=== PATIENT | female | born 1950 | race African-American/Black ===

== ENCOUNTER 2024-06-11 11:04 | Outpatient (CLI) | payer MEDICARE | END 2024-06-11 11:05 | disposition home or self-care (01) | LOC: CSHULT 11:04 | PROVIDERS: ATTEND Internal Medicine | DX: R22.2 Localized swelling, mass and lump, trunk (principal); C34.91 Malignant neoplasm of unspecified part of right bronchus or lung; R97.8 Other abnormal tumor markers | CPT/HCPCS: 76999 ==

== ENCOUNTER 2024-07-15 09:54 | Outpatient (CLI) | payer MEDICARE | END 2024-07-15 09:55 | disposition home or self-care (01) | LOC: CSHCT 09:54 | PROVIDERS: ATTEND Internal Medicine | DX: C34.91 Malignant neoplasm of unspecified part of right bronchus or lung (principal); R97.8 Other abnormal tumor markers; C79.51 Secondary malignant neoplasm of bone; E27.8 Other specified disorders of adrenal gland; R91.8 Other nonspecific abnormal finding of lung field | CPT/HCPCS: 71260; 74177; 82565 ==

== ENCOUNTER 2025-03-03 14:10 | Outpatient (CLI) | payer OTHER | END 2025-03-03 14:11 | disposition home or self-care (01) | LOC: CSHULT 14:10 | PROVIDERS: ATTEND Internal Medicine | DX: C34.91 Malignant neoplasm of unspecified part of right bronchus or lung (principal); R97.8 Other abnormal tumor markers; C34.31 Malignant neoplasm of lower lobe, right bronchus or lung; I25.3 Aneurysm of heart; I07.1 Rheumatic tricuspid insufficiency | CPT/HCPCS: 93306 ==